=== PATIENT | male | born 1975 | race Caucasian/White ===

== ENCOUNTER 2018-04-01 15:49 | Emergency (ER) | payer OTHER ==
[~2018-04-01] VITALS: Ht 175.3 cm; Wt 86.2 kg
[~2018-04-01 15:49] MED LIST: ALBUTEROL2.5 MG/32 IH; AMBIEN 5 MG TABL5 M1 PO; AMITRIPTYLINE H25 M2 PO; BACTRIM DS TAB1 EACH PO; CARISOPRODOL 3350 MG PO; CHLORPROMAZINE50 M2 PO; DUONEB 2.5-0.5 M3 ML; EPIPEN JR0.15 MG/0. IM; FLEXERIL PO; HYDROCODONE-AP1 EAC6 PO; IBUPROFEN 800800 M1 PO; KEFLEX500 MG PO; LIORESAL 10 MG10 MG PO; MEDROLDOSEPACK PO; MIRAPEX; MOBIC15 MG; MOBIC7.5 M1 PO; NAPROSYN500 MG PO; NEURONTIN 300300 M1 PO; NORCO 5-325 TA1 EACH PO; PERCOCET 5-3251 EACH PO; PREDNISONE 10 M10 M1 PO; PREDNISONE 20 M20 M1 PO; ROBAXIN 750 MG750 M1 PO; TESSALON PERLE100 MG PO; TRAMADOL 50 MG50 MG PO; VENTOLIN HFA 1818 GM INH; VENTOLIN HFA INH8 GM IH; VISTARIL 25 MG25 M1 PO; XANAX 0.5 MG0.5 M1; XANAX 0.5 MG0.5 M1 PO; XANAX XR1 MG PO; XANAX1 MG PO; XOPENEX HFA15 GM; ZOFRAN ODT4 MG PO
[2018-04-01] MEDS ORDERED: IBUPROFEN 800800 M1 PO (15:59)
[2018-04-01] MEDS ORDERED: TYLENOL325 MG PO (15:59)
[2018-04-01] MEDS ORDERED: VENTOLIN HFA 1818 GM INH (16:40)
[2018-04-01] MEDS ORDERED: AUGMENTIN 875-1 EACH PO (16:40)
[2018-04-01 16:56] VITALS: BP 123/83
== END 2018-04-01 16:57 | disposition home or self-care (01) ==
LOC: M.ERS 15:49
DX: J40 Bronchitis, not specified as acute or chronic (principal); J32.9 Chronic sinusitis, unspecified; R59.1 Generalized enlarged lymph nodes; F41.9 Anxiety disorder, unspecified; F17.210 Nicotine dependence, cigarettes, uncomplicated; Z91.041 Radiographic dye allergy status; Z91.018 Allergy to other foods; Z91.013 Allergy to seafood; Z88.8 Allergy status to other drugs, medicaments and biological substances

== ENCOUNTER 2021-06-11 15:14 | Emergency (ER) | payer OTHER ==
[~2021-06-11] VITALS: Ht 175.3 cm; Wt 87.1 kg
[~2021-06-11 15:14] MED LIST changes: +AUGMENTIN 875-1 EACH PO; +TYLENOL325 MG PO
[2021-06-11] MEDS ORDERED: IBUPROFEN 800800 MG PO (16:42)
[2021-06-11] MEDS ORDERED: AMOXICILLIN 50500 MG PO (16:42)
[2021-06-11 16:59] VITALS: BP 125/70
== END 2021-06-11 16:59 | disposition home or self-care (01) ==
LOC: M.ERS 15:14
DX: H66.92 Otitis media, unspecified, left ear (principal); Z20.822 Contact with and (suspected) exposure to COVID-19; J45.909 Unspecified asthma, uncomplicated; F41.9 Anxiety disorder, unspecified; F17.210 Nicotine dependence, cigarettes, uncomplicated; Z91.02 Food additives allergy status; Z91.018 Allergy to other foods; Z91.013 Allergy to seafood